=== PATIENT | female | born 1960 | race Caucasian/White ===

== ENCOUNTER 2017-01-09 19:37 | Inpatient (IN) | payer OTHER ==
[~2017-01-09 19:37] MED LIST: ESTR0.5T9 PO; LEVO88TA2 PO; ZOCO40TA PO
[2017-01-09 19:40] VITALS: BP 165/82; PULSE 94; RESP 16; TEMP 99.2; O2SAT 98
[2017-01-09 20:21] VITALS: BP 124/69; PULSE 97; RESP 18; O2SAT 96
[2017-01-09] MEDS ORDERED: HYDR12.56 PO (20:21)
[2017-01-09] MEDS ORDERED: LEVO125T4 PO (20:21)
[2017-01-09] MEDS ORDERED: SODIUM CHLOR 0.9% 1000 ML INJ 1,000 ML IV SCH (20:42)
[2017-01-09] MEDS ORDERED: SODIUM CHLORIDE 0.9% FLUSH 5 ML FLUSH IVF PRN (20:45)
--- NOTE | 2017-01-09 20:46 | PD ---
HPI Chief Complaint: Abdominal Pain Time Seen by Provider: 20:44 Travel History International Travel<30 days: No Contact w/Intl Traveler<30days: No Traveled to known affect area: No History of Present Illness HPI Patient is a 56-year-old female with a history of hypertension, diverticulitis, and grade 3 internal hemorrhoids who underwent colonoscopy [address] Lu presenting with abdominal pain and rectal bleeding. She states that the abdominal pain began this morning and has been getting increasingly worse. It tends to come in waves. It is worse in the left lower quadrant. It is aching and squeezing in nature. 6 out of 10 in severity. No provocative factors, no palliative factors. The pain does radiate to the left lower back and across the suprapubic region and the right lower quadrant. Patient felt physicians had a subjective fever, temperature home was 99.7 Fahrenheit. No antipyretics taken today. She has mild nausea without vomiting. She reports multiple small amounts of soft stool passed since afternoon, today she is also having bright red blood with bowel movements. She states this is more blood than when she was having the internal hemorrhoids. Denies uncontrollable anne of blood. She denies melena, alcohol use and history of PUD. Denies dysuria, hematuria, increased urinary urgency or frequency. Denies vaginal bleeding and discharge. History of hysterectomy and oophrectomy, no other abdominal or pelvic surgeries. She denies any chest pain and shortness of breath. PFSH Past Medical History Blood Disorders: No Heart Rhythm Problems: No Cancer: No Cardiac Catheterization: No Cardiovascular Problems: Yes High Cholesterol: Yes Congestive Heart Failure: No Diabetes: No Endocrine: Yes Gastrointestinal Disorders: Yes (DIVERTICULITIS) Glaucoma: No Genitourinary: No Hepatitis: No Hiatal Hernia: No Hypertension: Yes Immune Disorder: No Musculoskeletal: No Neurologic: No Psychiatric: No Reproductive: No Respiratory: No Thyroid Disease: Yes Influenza Vaccination: No PNEUMOCCOCAL Vaccine (Year): 2 : 0 Para: 0 Past Surgical History Coronary Artery Bypass Graft: No Gynecologic Surgery: Yes (HYSTERECTOMY OOPHERECTOMY) Hysterectomy: Yes (2001) Pacemaker: No Other Surgery: Yes Family History Family Myocardial Infarction: Yes (brother father) Social History Alcohol Use: No Tobacco Use: No Substance Use: No Allergies-Medications (Allergen,Severity, Reaction): Coded Allergies: Tetanus Toxoid (Verified Allergy, Intermediate, 01/09/17) TETANUS VACCINE CAUSED FEVER AND SWELLING AT SITE. Reported Meds & Prescriptions Reported Meds & Active Scripts Active Reported Hydrochlorothiazide 12.5 Mg Tab 12.5 Mg PO DAILY Levothyroxine (Levothyroxine Sodium) 125 Mcg Tab 115 Mcg PO DAILY Review of Systems Except as stated in HPI: all other systems reviewed are Neg Physical Exam Narrative GENERAL: Well-developed and well-nourished adult female in no acute distress. SKIN: Warm and dry. Good turgor without tenting. HEAD: Normocephalic and atraumatic. EYES: PERRL bilaterally, 5mm. EOMI bilaterally. No injection or icterus present. No proptosis. Lids without edema or erythema. ENT: Buccal mucosa pink and moist. Oropharynx free of erythema, tonsillar hypertrophy, masses, swelling, asymmetry and exudates. Uvula midline and airway patent. NECK: Supple, no meningeal signs. Trachea midline, no JVD. No cervical or facial lymphadenopathy. CARDIOVASCULAR: Regular rate and rhythm without murmurs, rubs, clicks or gallops. Radial and posterior tibial pulses 2+ bilaterally. No pedal edema. RESPIRATORY: Clear to auscultation bilaterally with symmetrical rise and fall, no distress or use of accessory muscles. GASTROINTESTINAL: Moderate suprapubic and left lower quadrant tenderness, mild right lower quadrant tenderness. No epigastric or upper quadrant tenderness. No rebound or guarding. No distention or discoloration. Normal bowel sounds all 4 quadrants. No masses or organomegaly present. Negative bilateral CVA tenderness. Rectal exam reveals normal rectal tone without palpable fissures or masses. Soft stool in the rectal vault with small amount of bright red blood streaks without clots or flow, Hemoccult positive. MUSCULOSKELETAL: Patient freely moving all four extremities spontaneously. Extremities without clubbing, cyanosis, or edema. No obvious deformities. NEUROLOGIC: CN II-XII grossly intact. Awake and alert. Motor grossly within normal limits. Normal speech. PSYCHIATRIC: Appropriate mood and affect; insight and judgment normal. Data Data Last Documented VS Vital Signs Date Time Temp Pulse Resp B/P Pulse Ox O2 Delivery O2 Flow Rate FiO2 01/09/17 20:21 97 18 124/69 96 Room Air 01/09/17 19:40 99.2 Orders Complete Blood Count With Diff (01/09/17 20:42) Comprehensive Metabolic Panel (01/09/17 20:42) Lipase (01/09/17 20:42) Lactic Acid (01/09/17 20:42) Prothrombin Time / Inr (Pt) (01/09/17 20:42) Act Partial Throm Time (Ptt) (01/09/17 20:42) Urinalysis - C+S If Indicated (01/09/17 20:42) Iv Access Insert/Monitor (01/09/17 20:42) Ecg Monitoring (01/09/17 20:42) Oximetry (01/09/17 20:42) NPO (01/09/17 20:42) Sodium Chlor 0.9% 1000 Ml Inj (Ns 1000 M (01/09/17 20:42) Sodium Chloride 0.9% Flush (Ns Flush) (01/09/17 20:45) Electrocardiogram (01/09/17 20:42) Chest, Single Ap (01/09/17 20:42) Troponin I (01/09/17 20:42) Ammonia (01/09/17 20:49) Type And Screen (01/09/17 20:49) Ondansetron Inj (Zofran Inj) (01/09/17 21:00) Pantoprazole Inj (Protonix Inj) (01/09/17 21:00) Ct Abd/Pel W Iv Contrast(Rout) (01/09/17 20:49) Piperacil-Tazo 4.5 Gm Premix (Zosyn 4.5 (01/09/17 21:30) Morphine Inj (Morphine Inj) (01/09/17 21:45) Iohexol 350 Inj (Omnipaque 350 Inj) (01/09/17 22:25) Admit Order (Ed Use Only) (01/09/17 23:01) Consult Gastroenterology (01/09/17 ) Labs Laboratory Tests Test 01/09/17 01/09/17 01/09/17 20:16 20:53 21:25 Blood Type B POSITIVE Antibody Screen NEGATIVE White Blood Count 14.8 TH/MM3 Red Blood Count 4.63 MIL/MM3 Hemoglobin 13.8 GM/DL Hematocrit 40.2 % Mean Corpuscular Volume 86.8 FL Mean Corpuscular Hemoglobin 29.8 PG Mean Corpuscular Hemoglobin 34.3 % Concent Red Cell Distribution Width 13.5 % Platelet Count 295 TH/MM3 Mean Platelet Volume 8.7 FL Neutrophils (%) (Auto) 71.8 % Lymphocytes (%) (Auto) 19.8 % Monocytes (%) (Auto) 6.8 % Eosinophils (%) (Auto) 1.0 % Basophils (%) (Auto) 0.6 % Neutrophils # (Auto) 10.6 TH/MM3 Lymphocytes # (Auto) 2.9 TH/MM3 Monocytes # (Auto) 1.0 TH/MM3 Eosinophils # (Auto) 0.1 TH/MM3 Basophils # (Auto) 0.1 TH/MM3 CBC Comment DIFF FINAL Differential Comment Prothrombin Time 10.4 SEC Prothromb Time International 0.9 RATIO Ratio Activated Partial 27.5 SEC Thromboplast Time Sodium Level 139 MEQ/L Potassium Level 3.6 MEQ/L Chloride Level 103 MEQ/L Carbon Dioxide Level 28.2 MEQ/L Anion Gap 8 MEQ/L Blood Urea Nitrogen 11 MG/DL Creatinine 0.81 MG/DL Estimat Glomerular Filtration 73 ML/MIN Rate Random Glucose 101 MG/DL Lactic Acid Level 0.7 mmol/L Calcium Level 8.7 MG/DL Total Bilirubin 0.5 MG/DL Aspartate Amino Transf 16 U/L (AST/SGOT) Alanine Aminotransferase 22 U/L (ALT/SGPT) Alkaline Phosphatase 92 U/L Ammonia 12 MCMOL/L Troponin I LESS THAN 0.02 NG/ML Total Protein 7.1 GM/DL Albumin 3.3 GM/DL Lipase 136 U/L Urine Color YELLOW Urine Turbidity CLEAR Urine pH 7.0 Urine Specific [place] 1.013 Urine Protein NEG mg/dL Urine Glucose (UA) NEG mg/dL Urine Ketones NEG mg/dL Urine Occult Blood NEG Urine Nitrite NEG Urine Bilirubin NEG Urine Urobilinogen LESS THAN 2.0 MG/DL Urine Leukocyte Esterase NEG Urine RBC 3 /hpf Urine WBC 3 /hpf Urine Squamous Epithelial <1 /hpf Cells Urine Bacteria RARE /hpf Urine Mucus FEW /lpf Microscopic Urinalysis Comment CULT NOT INDICATED MDM Medical Decision Making Medical Screen Exam Complete: Yes Emergency Medical Condition: Yes Interpretation(s) Last 24 hours Impressions Chest X-Ray 01/09/172041 Signed Impressions: Service Date/Time: Monday, January 09, 2017 21:03 - CONCLUSION: No acute disease. Wilfredo Nance MD Laboratory Tests Test 01/09/17 01/09/17 01/09/17 20:16 20:53 21:25 Blood Type B POSITIVE Antibody Screen NEGATIVE White Blood Count 14.8 TH/MM3 (4.0-11.0) Red Blood Count 4.63 MIL/MM3 (4.00-5.30) Hemoglobin 13.8 GM/DL (11.6-15.3) Hematocrit 40.2 % (35.0-46.0) Mean Corpuscular Volume 86.8 FL (80.0-100.0) Mean Corpuscular Hemoglobin 29.8 PG (27.0-34.0) Mean Corpuscular Hemoglobin 34.3 % Concent (32.0-36.0) Red Cell Distribution Width 13.5 % (11.6-17.2) Platelet Count 295 TH/MM3 (150-450) Mean Platelet Volume 8.7 FL (7.0-11.0) Neutrophils (%) (Auto) 71.8 % (16.0-70.0) Lymphocytes (%) (Auto) 19.8 % (9.0-44.0) Monocytes (%) (Auto) 6.8 % (0.0-8.0) Eosinophils (%) (Auto) 1.0 % (0.0-4.0) Basophils (%) (Auto) 0.6 % (0.0-2.0) Neutrophils # (Auto) 10.6 TH/MM3 (1.8-7.7) Lymphocytes # (Auto) 2.9 TH/MM3 (1.0-4.8) Monocytes # (Auto) 1.0 TH/MM3 (0-0.9) Eosinophils # (Auto) 0.1 TH/MM3 (0-0.4) Basophils # (Auto) 0.1 TH/MM3 (0-0.2) CBC Comment DIFF FINAL Differential Comment Prothrombin Time 10.4 SEC (9.8-11.6) Prothromb Time International 0.9 RATIO Ratio Activated Partial 27.5 SEC Thromboplast Time (24.3-30.1) Sodium Level 139 MEQ/L (136-145) Potassium Level 3.6 MEQ/L (3.5-5.1) Chloride Level 103 MEQ/L (98-107) Carbon Dioxide Level 28.2 MEQ/L (21.0-32.0) Anion Gap 8 MEQ/L (5-15) Blood Urea Nitrogen 11 MG/DL (7-18) Creatinine 0.81 MG/DL (0.50-1.00) Estimat Glomerular Filtration 73 ML/MIN (>89) Rate Random Glucose 101 MG/DL (74-106) Lactic Acid Level 0.7 mmol/L (0.4-2.0) Calcium Level 8.7 MG/DL (8.5-10.1) Total Bilirubin 0.5 MG/DL (0.2-1.0) Aspartate Amino Transf 16 U/L (15-37) (AST/SGOT) Alanine Aminotransferase 22 U/L (10-53) (ALT/SGPT) Alkaline Phosphatase 92 U/L (45-117) Ammonia 12 MCMOL/L (11-32) Troponin I LESS THAN 0.02 NG/ML (0.02-0.05) Total Protein 7.1 GM/DL (6.4-8.2) Albumin 3.3 GM/DL (3.4-5.0) Lipase 136 U/L (73-393) Urine Color YELLOW (YELLW/STRAW) Urine Turbidity CLEAR (CLEAR) Urine pH 7.0 (5.0-8.5) Urine Specific [place] 1.013 (1.002-1.035) Urine Protein NEG mg/dL (NEG-TRACE) Urine Glucose (UA) NEG mg/dL (NEG) Urine Ketones NEG mg/dL (NEG) Urine Occult Blood NEG (NEG) Urine Nitrite NEG (NEG) Urine Bilirubin NEG (NEG) Urine Urobilinogen LESS THAN 2.0 MG/DL (LESS THAN 2.0) Urine Leukocyte Esterase NEG (NEG) Urine RBC 3 /hpf (0-3) Urine WBC 3 /hpf (0-5) Urine Squamous Epithelial <1 /hpf (0-5) Cells Urine Bacteria RARE /hpf (NONE) Urine Mucus FEW /lpf (OCC) Microscopic Urinalysis Comment CULT NOT INDICATED Differential Diagnosis GI bleed versus diverticulitis versus postsurgical infection versus postsurgical complication versus renal calculi versus pyelonephritis Narrative Course Patient is a 56-year-old female with a history of hypertension, diverticulitis, and grade 3 internal hemorrhoids who underwent colonoscopy [address] Lu presenting with abdominal pain and rectal bleeding that began today. She called her the on-call GI who was concerned about infection and told her to come to the ED. She has a history of diverticulitis. Associated nausea. Temperature is 99.2 Fahrenheit without antipyretics. No tachycardia and she is nontoxic appearing. Stool is Hemoccult positive. Abdomen is rather tender in the suprapubic region and left lower quadrant without rebounding or guarding, some right lower quadrant tenderness as well. Patient was given 1 L normal saline bolus, Zofran and Protonix 80 milligram bolus and ordered labs included type and screen, lipase, ammonia, troponin and EKG. Ordered chest x-ray and CT abdomen with contrast. Patient declines analgesia at this time. EKG normal sinus rhythm, normal axis intervals. No ST-T changes. CBC shows a leukocytosis of 14.8 with a neutrophilia, no bands. Given the patient has felt febrile, has a leukocytosis and states the GI on-call was concerned about postprocedure infection right antibiotics, conferred with Dr. Ac who recommended Zosyn. CT confirms diverticulitis is present with a 5 cm segment of colon, there is no focal abscess seen or free air but there is trace paracolic fluid. Spoke with Dr. Shannon, GI, who agreed to consult on the admission. Dr. Vanessa accepeted the admission. [facility] Point of Care Internal Pos. & Neg. Controls: Passed Fecal Specimen Occult Blood: Positive Diagnosis Primary Impression: Diverticulitis Qualified Code: K57.33 - Diverticulitis of large intestine without perforation or abscess with bleeding Admitting Information Admitting Physician Requests: Admit Condition: Stable Mingo Corona III Jan 09, 2017 20:46
[2017-01-09] MEDS ORDERED: ONDANSETRON HCL 4 MG/2 ML VIAL IVP ONE (21:00)
[2017-01-09] MEDS ORDERED: PANTOPRAZOLE INJ 80 MG in SODIUM CHLORIDE 0.9% INJ 35 ML IV ONE (21:00)
[2017-01-09 21:01] LABS: AUTOMATED NEUTROPHIL # 10.6 TH/MM3 (1.8-7.7); BASOPHIL # 0.1 TH/MM3 (0-0.2); BASOPHIL % 0.6 % (0.0-2.0); EOSINOPHIL # 0.1 TH/MM3 (0-0.4); HEMATOCRIT 40.2 % (35.0-46.0); HEMO FLAGS DIFF FINAL; LYMPH % 19.8 % (9.0-44.0); LYMPHOCYTE # 2.9 TH/MM3 (1.0-4.8); MEAN CELL VOLUME 86.8 FL (80.0-100.0); MEAN CORPUSCULAR HEMOGLOBIN 29.8 PG (27.0-34.0); MEAN CORPUSCULAR HGB CONC 34.3 % (32.0-36.0); MONO % 6.8 % (0.0-8.0); NEUT % 71.8 % (16.0-70.0); PLATELET COUNT 295 TH/MM3 (150-450); RED BLOOD COUNT 4.63 MIL/MM3 (4.00-5.30); RED CELL DISTRIBUTION WIDTH 13.5 % (11.6-17.2); WHITE BLOOD COUNT 14.8 TH/MM3 (4.0-11.0)
[2017-01-09 21:12] LABS: APTT (PATIENT) 27.5 SEC (24.3-30.1); INTERNATIONAL NORMALIZED RATIO 0.9 RATIO; PROTHROMBIN TIME - PATIENT 10.4 SEC (9.8-11.6)
--- NOTE | 2017-01-09 21:25 | RADRPT ---
EXAM DATE/TIME: 01/09/2017 21:03 [facility] COMPARISON: No previous studies available for comparison. INDICATIONS : Free air. Patient states colonoscopy two days ago. Lower abdominal pain and rectal bleeding since the n. MEDICAL HISTORY : Hypertension. SURGICAL HISTORY : None. ENCOUNTER: Initial ACUITY: 2 days PAIN SCORE: 5/10 LOCATION: Bilateral lower chest and abdomen. FINDINGS: A single view of the chest demonstrates the lungs to be symmetrically aerated without evidence of mas s, infiltrate or effusion. The cardiomediastinal contours are unremarkable. Osseous structures are intact. CONCLUSION: No acute disease. Wilfredo Nance MD on January 09, 2017 at 21:23 Board Certified Radiologist. This report was verified electronically.
[2017-01-09] MEDS ORDERED: PIPERACIL-TAZO 4.5 GM PREMIX 100 ML IV ONE (21:30)
[2017-01-09 21:37] LABS: ALT (GPT) 22 U/L (10-53); ANION GAP 8 MEQ/L (5-15); AST (GOT) 16 U/L (15-37); BICARBONATE 28.2 MEQ/L (21.0-32.0); BLOOD UREA NITROGEN 11 MG/DL (7-18); CHLORIDE 103 MEQ/L (98-107); GLOMERULAR FILTRATION RATE 73 ML/MIN (>89); POTASSIUM 3.6 MEQ/L (3.5-5.1); SODIUM (NA) 139 MEQ/L (136-145)
[2017-01-09 21:41] LABS: ALKALINE PHOSPHATASE 92 U/L (45-117); TOTAL BILIRUBIN ADULT 0.5 MG/DL (0.2-1.0)
[2017-01-09] MEDS ORDERED: MORPHINE SULFATE 8 MG/ML INJ IV PUSH ONE (21:45)
[2017-01-09 21:50] LABS: BACTERIA, URINE RARE /hpf; BLOOD, URINE NEG (NEG); COMMENT (UR) CULT NOT INDICATED; CULTURE IF INDICATED CULT NOT INDICATED; GLUCOSE,URINE NEG (NEG); KETONE, URINE NEG (NEG); MUCUS URINE FEW /lpf (OCC); NITRITE,URINE NEG (NEG); SQUAMOUS EPITHELIAL CELL URINE <1 /hpf (0-5); URINE COLOR YELLOW (YELLW/STRAW)
[2017-01-09] MEDS ORDERED: IOHEXOL 350 MG/ML 10 ML VIAL (for RAD DIAG) IV ONE (22:25)
--- NOTE | 2017-01-09 22:48 | RADRPT ---
EXAM DATE/TIME: 01/09/2017 22:24 [facility] COMPARISON: No previous studies available for comparison. INDICATIONS : Low abdominal pain and blood in stool. Colonscopy 2 days prior. IV CONTRAST: 91 cc Omnipaque 350 (iohexol) IV ORAL CONTRAST: No oral contrast ingested. RADIATION DOSE: 18.19 CTDIvol (mGy) MEDICAL HISTORY : Diverticulitis. Cardiovascular disease Hypertension. SURGICAL HISTORY : Hysterectomy. ENCOUNTER: Initial ACUITY: 1 day PAIN SCALE: 6/10 LOCATION: Bilateral lower quadrant TECHNIQUE: Volumetric scanning of the abdomen and pelvis was performed. Using automated exposure control and ad justment of the mA and/or kV according to patient size, radiation dose was kept as low as reasonably achievable to obtain optimal diagnostic quality images. FINDINGS: There is an approximately 5 cm long segment distal left colon with mural thickening. There is a large diverticulum anteriorly and is griffin-colonic fat stranding and edema with trace free fluid most steve cteristic of an acute diverticulitis. No focal abscess, obstruction or free air. Lung bases are clear. No acute findings in the liver, spleen, adrenals, kidneys or pancreas. There ar e multiple calcified gallstones in gallbladder. No acute bony abnormalities. CONCLUSION: Acute diverticulitis of the distal left colon without focal abscess, obstruction, or free air. Trace free fluid in the left paracolic gutter. Multiple gallstones in gallbladder. Wilfredo Nance MD on January 09, 2017 at 22:40 Board Certified Radiologist. This report was verified electronically.
[2017-01-09 23:23] VITALS: BP 136/70; PULSE 92; RESP 16; O2SAT 98
--- NOTE | 2017-01-09 23:43 | HHI.HP ---
HPI Service [facility] Hospitalists Primary Care Physician Clay Macias MD Admission Diagnosis DIVERTICULITIS, RECTAL BLEEDING Chief Complaint: rectal bleeding abdominal pain Travel History International Travel<30 Days: No Contact w/Intl Traveler <30 Da: No Traveled to Known Affected Are: No History of Present Illness Patient is a 56-year-old female with a history of hypertension, diverticulitis, and grade 3 internal hemorrhoids who underwent colonoscopy [address] Lu presenting with abdominal pain and rectal bleeding. She states that the abdominal pain began this morning and has been getting increasingly worse. It tends to come in waves. It is worse in the left lower quadrant. It is aching and squeezing in nature. 6 out of 10 in severity. No provocative factors, no palliative factors. The pain does radiate to the left lower back and across the suprapubic region and the right lower quadrant. Patient had temperature home was 99.7 No antipyretics taken today. She has mild nausea without vomiting. She reports multiple small amounts of soft stool passed since afternoon, today she is also having bright red blood with bowel movements. She states this is more blood than when she was having the internal hemorrhoids. Denies uncontrollable anne of blood. She denies melena, alcohol use and history of PUD. Denies dysuria, hematuria, increased urinary urgency or frequency. Denies vaginal bleeding and discharge. History of hysterectomy and oophrectomy, no other abdominal or pelvic surgeries. She denies any chest pain and shortness of breath. GI was called and they recommend admit with IV antibiotics and pain control. Review of Systems Gastrointestinal: COMPLAINS OF: Abdominal pain, Bloody stools Past Family Social History Past Medical History hypertension,hyperlipidemia,diverticular problems Past Surgical History hysterectomy Reported Medications hctz 12.5 ,levothyroxine Allergies: Coded Allergies: Tetanus Toxoid (Verified Allergy, Intermediate, 01/09/17) TETANUS VACCINE CAUSED FEVER AND SWELLING AT SITE. Family History brother cad Social History NS,ND Physical Exam Vital Signs Vital Signs Date Time Temp Pulse Resp B/P Pulse Ox O2 Delivery O2 Flow Rate FiO2 01/09/17 23:23 92 16 136/70 98 Room Air 01/09/17 20:21 97 18 124/69 96 Room Air 01/09/17 19:40 99.2 94 16 165/82 98 Physical Exam GENERAL: This is a well-nourished, well-developed patient, in no apparent distress. SKIN: No rashes, ecchymoses or lesions. Cool and dry. HEAD: Atraumatic. Normocephalic. No temporal or scalp tenderness. EYES: Pupils equal round and reactive. Extraocular motions intact. No scleral icterus. No injection or drainage. ENT: Nose without bleeding, purulent drainage or septal hematoma. Throat without erythema, tonsillar hypertrophy or exudate. Uvula midline. Airway patent. NECK: Trachea midline. No JVD or lymphadenopathy. Supple, nontender, no meningeal signs. CARDIOVASCULAR: Regular rate and rhythm without murmurs, gallops, or rubs. RESPIRATORY: Clear to auscultation. Breath sounds equal bilaterally. No wheezes , rales, or rhonchi. GASTROINTESTINAL: Abdomen Moderate suprapubic and left lower quadrant tenderness , mild right lower quadrant tenderness guiac positive MUSCULOSKELETAL: Extremities without clubbing, cyanosis, or edema. No joint tenderness, effusion, or edema noted. No calf tenderness. Negative Homans sign bilaterally. NEUROLOGICAL: Awake and alert. Cranial nerves II through XII intact. Motor and sensory grossly within normal limits. Five out of 5 muscle strength in all muscle groups. Normal speech. Laboratory Laboratory Tests Test 01/09/17 01/09/17 01/09/17 20:16 20:53 21:25 Blood Type B POSITIVE Antibody Screen NEGATIVE White Blood Count 14.8 Red Blood Count 4.63 Hemoglobin 13.8 Hematocrit 40.2 Mean Corpuscular Volume 86.8 Mean Corpuscular Hemoglobin 29.8 Mean Corpuscular Hemoglobin 34.3 Concent Red Cell Distribution Width 13.5 Platelet Count 295 Mean Platelet Volume 8.7 Neutrophils (%) (Auto) 71.8 Lymphocytes (%) (Auto) 19.8 Monocytes (%) (Auto) 6.8 Eosinophils (%) (Auto) 1.0 Basophils (%) (Auto) 0.6 Neutrophils # (Auto) 10.6 Lymphocytes # (Auto) 2.9 Monocytes # (Auto) 1.0 Eosinophils # (Auto) 0.1 Basophils # (Auto) 0.1 CBC Comment DIFF FINAL Differential Comment Prothrombin Time 10.4 Prothromb Time International 0.9 Ratio Activated Partial 27.5 Thromboplast Time Sodium Level 139 Potassium Level 3.6 Chloride Level 103 Carbon Dioxide Level 28.2 Anion Gap 8 Blood Urea Nitrogen 11 Creatinine 0.81 Estimat Glomerular Filtration 73 Rate Random Glucose 101 Lactic Acid Level 0.7 Calcium Level 8.7 Total Bilirubin 0.5 Aspartate Amino Transf 16 (AST/SGOT) Alanine Aminotransferase 22 (ALT/SGPT) Alkaline Phosphatase 92 Ammonia 12 Troponin I LESS THAN 0.02 Total Protein 7.1 Albumin 3.3 Lipase 136 Urine Color YELLOW Urine Turbidity CLEAR Urine pH 7.0 Urine Specific [place] 1.013 Urine Protein NEG Urine Glucose (UA) NEG Urine Ketones NEG Urine Occult Blood NEG Urine Nitrite NEG Urine Bilirubin NEG Urine Urobilinogen LESS THAN 2.0 Urine Leukocyte Esterase NEG Urine RBC 3 Urine WBC 3 Urine Squamous Epithelial <1 Cells Urine Bacteria RARE Urine Mucus FEW Microscopic Urinalysis Comment CULT NOT INDICATED Result Diagram: 01/09/17205201/09/172052 Imaging Last 24 hours Impressions Abdomen/Pelvis CT 01/09/172048 Signed Impressions: Service Date/Time: Monday, January 09, 2017 22:24 - CONCLUSION: Acute diverticulitis of the distal left colon without focal abscess, obstruction, or free air. Trace free fluid in the left paracolic gutter. Multiple gallstones in gallbladder. Wilfredo Nance MD Chest X-Ray 01/09/172041 Signed Impressions: Service Date/Time: Monday, January 09, 2017 21:03 - CONCLUSION: No acute disease. Wilfredo Nance MD Course in er started on IV fluids and given morphine and antibiotics Zosyn Assessment and Plan Problem List: (1) Diverticulitis Status: Acute Plan: S/P colonoscopy [address] scan showing acute diverticulitis start antibiotic Zosyn and pain meds GI consult Assessment and Plan further plan as case progresses Code Status full Discussed Condition With patient Physician Certification 2 Midnight Certification Type: Admission for Inpatient Services Order for Inpatient Services The services are ordered in accordance with Medicare regulations or non- Medicare payer requirements, as applicable. In the case of services not specified as inpatient-only, they are appropriately provided as inpatient services in accordance with the 2-midnight benchmark. Estimated LOS (days): 3 3 days is the estimated time the patient will need to remain in the hospital, assuming treatment plan goals are met and no additional complications. Post-Hospital Plan: Not yet determined Problem Qualifiers (1) Diverticulitis: Qualified Code: K57.33 - Diverticulitis of large intestine without perforation or abscess with bleeding Anjel Eason MD Jan 09, 2017 23:43
[2017-01-09] MEDS ORDERED: SODIUM CHLOR 0.45% 1000 ML INJ 1,000 ML IV SCH (23:45)
[2017-01-09] MEDS ORDERED: ONDANSETRON HCL 4 MG/2 ML VIAL IVP PRN (23:45)
[2017-01-09] MEDS ORDERED: SODIUM CHLORIDE 0.9% FLUSH 5 ML FLUSH FLUSH PRN (23:45)
[2017-01-09] MEDS ORDERED: MORPHINE SULFATE 4 MG/ML INJ IV PRN (23:45)
[2017-01-09] MEDS ORDERED: NALOXONE HCL 0.4 MG/ML AMP IV PRN (23:45)
[2017-01-10 01:00] VITALS: BP 127/69; PULSE 86; RESP 17; TEMP 98.3; O2SAT 99
[2017-01-10] MEDS: PANTOPRAZOLE SODIUM 40 MG VIAL IV PUSH SCH ×2 (01:20→21:15)
[2017-01-10 04:00] VITALS: BP 102/64; PULSE 81; RESP 17; TEMP 98.2; O2SAT 100
[2017-01-10] MEDS: PIPERACIL-TAZO 4.5 GM PREMIX 100 ML IV SCH ×3 (05:37→21:15)
[2017-01-10] MEDS: LEVOTHYROXINE SODIUM 125 MCG TAB PO SCH (05:37)
[2017-01-10 07:52] LABS: AUTOMATED NEUTROPHIL # 6.5 TH/MM3 (1.8-7.7); BASOPHIL # 0.1 TH/MM3 (0-0.2); BASOPHIL % 0.6 % (0.0-2.0); EOSINOPHIL # 0.2 TH/MM3 (0-0.4); EOSINOPHIL % 1.9 % (0.0-4.0); HEMATOCRIT 36.9 % (35.0-46.0); HEMO FLAGS DIFF FINAL; LYMPH % 20.1 % (9.0-44.0); LYMPHOCYTE # 1.9 TH/MM3 (1.0-4.8); MEAN CELL VOLUME 87.7 FL (80.0-100.0); MEAN CORPUSCULAR HGB CONC 34.3 % (32.0-36.0); MONO % 8.5 % (0.0-8.0); NEUT % 68.9 % (16.0-70.0); PLATELET COUNT 262 TH/MM3 (150-450); RED BLOOD COUNT 4.21 MIL/MM3 (4.00-5.30); RED CELL DISTRIBUTION WIDTH 13.5 % (11.6-17.2); WHITE BLOOD COUNT 9.4 TH/MM3 (4.0-11.0)
[2017-01-10 08:00] VITALS: BP 98/55; PULSE 80; RESP 14; TEMP 97.8; O2SAT 98
[2017-01-10 08:30] LABS: ALT (GPT) 19 U/L (10-53); ANION GAP 8 MEQ/L (5-15); AST (GOT) 12 U/L (15-37); BICARBONATE 29.4 MEQ/L (21.0-32.0); BLOOD UREA NITROGEN 9 MG/DL (7-18); CHLORIDE 108 MEQ/L (98-107); GLOMERULAR FILTRATION RATE 77 ML/MIN (>89); POTASSIUM 3.4 MEQ/L (3.5-5.1); SODIUM (NA) 145 MEQ/L (136-145)
[2017-01-10 08:32] LABS: ALKALINE PHOSPHATASE 81 U/L (45-117); TOTAL BILIRUBIN ADULT 1.3 MG/DL (0.2-1.0)
[2017-01-10] MEDS: HYDROCHLOROTHIAZIDE 12.5 MG CAP PO SCH (08:58)
[2017-01-10] MEDS: SODIUM CHLORIDE 0.9% FLUSH 5 ML FLUSH FLUSH SCH ×2 (08:58→21:15)
--- NOTE | 2017-01-10 10:27 | PD.CONS ---
HPI History of Present Illness This is a 56 year old female who came to the emergency room for evaluation of rectal bleeding. She reports that she has been having intermittent bright red blood per rectum for several months. She recently underwent a colonoscopy with ablation and thermal distraction of internal hemorrhoids on (01/07/17) and this revealed moderate diverticulosis was noted in the left colon, large internal hemorrhoids distracted with thermal ablation 8 applications, retroflex views revealed internal grade 3 hemorrhoids, a digital rectal exam was performed and revealed medium hemorrhoids. It was recommended that she follow a high-fiber diet and undergo a flexible sigmoidoscopy with banding in 1 month. The patient reports that she woke up Wednesday morning with lower abdominal pain similar to the pain she experienced with her previous episodes of diverticulitis. This is a sharp intermittent pain in the left lower quadrant that radiates across her lower abdomen and also to her lower back. She reports that she had a bowel movement and there was a large amount of bright red blood filling the toilet. She has had bleeding for several months, but states this was a large amount and therefore she was more concerned and came to the emergency room for further evaluation. There are no aggravating or alleviating factors. She reports that she had the one episode of bleeding and has had a scant amount of BRPBR when she wipes her self since that time, but nothing like the episode yesterday. She reports that she is been having intermittent fevers. A few weeks ago she had a low-grade fever and some abdominal pain that she assumed was related to a stomach virus that was going around her office. She reports that her symptoms resolved within a few days and therefore she didn't think much of it. She has a history of diverticulosis and has had 2 prior episodes of diverticulitis in the past the last episode being about 2 years ago. She reports that these were non-complicated and resolved with Flagyl and Cipro. Abdomen/Pelvis CT (01/09/17)- ----> Acute diverticulitis of the distal left colon without focal abscess, obstruction, or free air. Trace free fluid in the left paracolic gutter. Multiple gallstones in gallbladder. (Vanita Diaz) PFSH Past Medical History Degenerative disc disease Diverticulitis 2 Hypothyroidism Obesity History of endometriosis Past Surgical History Colonoscopy Lasix surgery Hysterectomy with nephrectomy Bilateral carpal tunnel surgery (Vanita Diaz) Coded Allergies: Tetanus Toxoid (Verified Allergy, Intermediate, 01/09/17) TETANUS VACCINE CAUSED FEVER AND SWELLING AT SITE. Medications Allergies Coded Allergies Type Severity Reaction Last Updated Verified Tetanus Toxoid Allergy Intermediate 01/09/17 Yes Active Scripts Medications Dose Route/Sig Days Date Category Hydrochlorothiazide 12.5 Mg Tab 12.5 Mg PO DAILY 01/09/17 Reported Levothyroxine (Levothyroxine Sodium) 125 Mcg Tab 115 Mcg PO DAILY 01/09/17 Reported Family History Brother had coronary artery disease Mother from lung cancer at age 81 Social History No history of tobacco, alcohol, illicit drug use (Vanita Diaz) Review of Systems Constitutional: COMPLAINS OF: Fever, DENIES: Fatigue, Weight loss, Chills Cardiovascular: DENIES: Chest pain Gastrointestinal: COMPLAINS OF: Abdominal pain, Bloody stools, DENIES: Black stools, Constipation, Diarrhea, Nausea, Vomiting, Swelling of Abdomen, Heartburn Musculoskeletal: COMPLAINS OF: Back pain Hematologic/lymphatic: DENIES: Bruising Neurologic: DENIES: Abnormal gait Psychiatric: DENIES: Confusion (Vanita Diaz) GI Exam Vitals I&O Vital Signs Date Time Temp Pulse Resp B/P Pulse Ox O2 Delivery O2 Flow Rate FiO2 01/10/17 08:00 97.8 80 14 98/55 98 01/10/17 04:00 98.2 81 17 102/64 100 01/10/17 02:21 18 01/10/17 01:00 98.3 86 17 127/69 99 01/09/17 23:23 92 16 136/70 98 Room Air 01/09/17 20:21 97 18 124/69 96 Room Air 01/09/17 19:40 99.2 94 16 165/82 98 Imaging Last Impressions Abdomen/Pelvis CT 01/09/172048 Signed Impressions: Service Date/Time: Monday, January 09, 2017 22:24 - CONCLUSION: Acute diverticulitis of the distal left colon without focal abscess, obstruction, or free air. Trace free fluid in the left paracolic gutter. Multiple gallstones in gallbladder. Wilfredo Nance MD Chest X-Ray 01/09/172041 Signed Impressions: Service Date/Time: Monday, January 09, 2017 21:03 - CONCLUSION: No acute disease. Wilfredo Nance MD Laboratory Test 01/09/17 01/09/17 01/09/17 01/10/17 20:16 20:53 21:25 07:23 Blood Type B POSITIVE Antibody Screen NEGATIVE White Blood Count 14.8 TH/MM3 9.4 TH/MM3 Red Blood Count 4.63 MIL/MM3 4.21 MIL/MM3 Hemoglobin 13.8 GM/DL 12.7 GM/DL Hematocrit 40.2 % 36.9 % Mean Corpuscular Volume 86.8 FL 87.7 FL Mean Corpuscular Hemoglobin 29.8 PG 30.0 PG Mean Corpuscular Hemoglobin 34.3 % 34.3 % Concent Red Cell Distribution Width 13.5 % 13.5 % Platelet Count 295 TH/MM3 262 TH/MM3 Mean Platelet Volume 8.7 FL 8.8 FL Neutrophils (%) (Auto) 71.8 % 68.9 % Lymphocytes (%) (Auto) 19.8 % 20.1 % Monocytes (%) (Auto) 6.8 % 8.5 % Eosinophils (%) (Auto) 1.0 % 1.9 % Basophils (%) (Auto) 0.6 % 0.6 % Neutrophils # (Auto) 10.6 TH/MM3 6.5 TH/MM3 Lymphocytes # (Auto) 2.9 TH/MM3 1.9 TH/MM3 Monocytes # (Auto) 1.0 TH/MM3 0.8 TH/MM3 Eosinophils # (Auto) 0.1 TH/MM3 0.2 TH/MM3 Basophils # (Auto) 0.1 TH/MM3 0.1 TH/MM3 CBC Comment DIFF FINAL DIFF FINAL Differential Comment Prothrombin Time 10.4 SEC Prothromb Time International 0.9 RATIO Ratio Activated Partial 27.5 SEC Thromboplast Time Sodium Level 139 MEQ/L 145 MEQ/L Potassium Level 3.6 MEQ/L 3.4 MEQ/L Chloride Level 103 MEQ/L 108 MEQ/L Carbon Dioxide Level 28.2 MEQ/L 29.4 MEQ/L Anion Gap 8 MEQ/L 8 MEQ/L Blood Urea Nitrogen 11 MG/DL 9 MG/DL Creatinine 0.81 MG/DL 0.77 MG/DL Estimat Glomerular Filtration 73 ML/MIN 77 ML/MIN Rate Random Glucose 101 MG/DL 88 MG/DL Lactic Acid Level 0.7 mmol/L Calcium Level 8.7 MG/DL 8.2 MG/DL Total Bilirubin 0.5 MG/DL 1.3 MG/DL Aspartate Amino Transf 16 U/L 12 U/L (AST/SGOT) Alanine Aminotransferase 22 U/L 19 U/L (ALT/SGPT) Alkaline Phosphatase 92 U/L 81 U/L Ammonia 12 MCMOL/L Troponin I LESS THAN 0.02 NG/ML Total Protein 7.1 GM/DL 6.1 GM/DL Albumin 3.3 GM/DL 2.8 GM/DL Lipase 136 U/L Urine Color YELLOW Urine Turbidity CLEAR Urine pH 7.0 Urine Specific [place] 1.013 Urine Protein NEG mg/dL Urine Glucose (UA) NEG mg/dL Urine Ketones NEG mg/dL Urine Occult Blood NEG Urine Nitrite NEG Urine Bilirubin NEG Urine Urobilinogen LESS THAN 2.0 MG/DL Urine Leukocyte Esterase NEG Urine RBC 3 /hpf Urine WBC 3 /hpf Urine Squamous Epithelial <1 /hpf Cells Urine Bacteria RARE /hpf Urine Mucus FEW /lpf Microscopic Urinalysis Comment CULT NOT INDICATED Physical Examination HEENT: Normocephalic; atraumatic; no jaundice. T CHEST: CTA CARDIAC: RRR ABDOMEN: Soft, nondistended, moderate tenderness lower abdomen, worse on left side; no hepatosplenomegaly; bowel sounds are present in all four quadrants. EXTREMITIES: No clubbing, cyanosis, or edema. SKIN: Normal; no rash; no jaundice. 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 (Vanita Diaz) Assessment and Plan Plan ASSESSMENT: - Acute diverticulitis, 3rd episode. Last episode about 2 years ago, noncomplicated per patient. Abdomen/Pelvis CT (01/09/17)-----> Acute diverticulitis of the distal left colon without focal abscess, obstruction, or free air. Trace free fluid in the left paracolic gutter. Multiple gallstones in gallbladder. WBC improving with Zosyn. Still with significant tenderness in lower abdomen and LLQ. - Lower GI bleeding, unclear if this is related to her hemorrhoids or diverticulitis. S/P Colonoscopy with ablation and thermal distraction of internal hemorrhoids on (01/07/17) and this revealed moderate diverticulosis was noted in the left colon, large internal hemorrhoids distracted with thermal ablation 8 applications, retroflex views revealed internal grade 3 hemorrhoids, a digital rectal exam was performed and revealed medium hemorrhoids. It was recommended that she follow a high-fiber diet and undergo a flexible sigmoidoscopy with banding in 1 month. The patient reports that she woke up Saturday morning with lower abdominal pain similar to the pain she experienced with her previous episodes of diverticulitis and had one episode of large amount of BRBPR filling toilet with BM. She has since just had a scant amount when she wipes herself. HH stable. - Lower abdominal pain secondary to diverticulitis. - Hemorrhoids, grade III. S/P tx as above. - Leukocytosis. Improved, 14.8----> 9.4. - Mild elevation of LFTs, These were normal on admission. Today with T. Bili 1.3, AST 12, ALT 19, ALk Phosph 81. CT as above. No RUQ tenderness. Will monitor. PLAN: - Clear liquids - Cont. PPI - Cont. Zosyn - Monitor HH - Transfuse as necessary - CBC, CMP in am - Supportive care - Further recommendations to follow based on results of above - Pt seen and examined by Dr. Shannon and myself and this note is written on her behalf (Vanita Diaz) Physician Comments seen, examined agree with above recurrent diverticulitis, rectocele -may need colorectal surgery eval op (Amy Shannon MD) Vanita Diaz Jan 10, 2017 10:27 Amy Shannon MD Jan 10, 2017 12:58
--- NOTE | 2017-01-10 11:29 | HHI.PR ---
Subjective Remarks Pt is tolerating liquid diet. Still with some LLQ pain. small amount of blood on toilet paper with BM, but gush of blood. Objective Vitals Vital Signs Date Time Temp Pulse Resp B/P Pulse Ox O2 Delivery O2 Flow Rate FiO2 01/10/17 08:00 97.8 80 14 98/55 98 01/10/17 04:00 98.2 81 17 102/64 100 01/10/17 02:21 18 01/10/17 01:00 98.3 86 17 127/69 99 01/09/17 23:23 92 16 136/70 98 Room Air 01/09/17 20:21 97 18 124/69 96 Room Air 01/09/17 19:40 99.2 94 16 165/82 98 Result Diagram: 01/10/17 0723 01/10/1723 Imaging Last 24 hours Impressions Abdomen/Pelvis CT 01/09/172048 Signed Impressions: Service Date/Time: Monday, January 09, 2017 22:24 - CONCLUSION: Acute diverticulitis of the distal left colon without focal abscess, obstruction, or free air. Trace free fluid in the left paracolic gutter. Multiple gallstones in gallbladder. Wilfredo Nance MD Chest X-Ray 01/09/172041 Signed Impressions: Service Date/Time: Monday, January 09, 2017 21:03 - CONCLUSION: No acute disease. Wilfredo Nance MD Objective Remarks GENERAL: This is a well-nourished, well-developed patient, in no apparent distress. CARDIOVASCULAR: Regular rate and rhythm without murmurs, gallops, or rubs. RESPIRATORY: Clear to auscultation. Breath sounds equal bilaterally. No wheezes , rales, or rhonchi. GASTROINTESTINAL: Abdomen soft, non-tender, nondistended. Normal active bowel sounds MUSCULOSKELETAL: Extremities without clubbing, cyanosis, or edema. NEURO: Alert & Oriented x4 to person, place, time, situation. Moves all ext x4 A/P Problem List: (1) Diverticulitis Status: Acute Plan: - comgmt with GI - Pt also has hemorrhoids - S/P colonoscopy 2 days prior to admission - CT Abd/pelvis (01/09/17) --> acute diverticulitis - zosyn - noco prn - IVFs - IV protonix - zosyn (2) External hemorrhoid Status: Acute Plan: - ProctoFoam - witch gopi (3) HTN (hypertension) Status: Acute Plan: - HCTZ, with parameters (4) Hypothyroid Status: Acute Plan: - levothyroxine Problem Qualifiers (1) Diverticulitis: Qualified Code: K57.33 - Diverticulitis of large intestine without perforation or abscess with bleeding (2) HTN (hypertension): Qualified Code: I10 - Essential hypertension (3) Hypothyroid: Qualified Code: E03.9 - Hypothyroidism, unspecified type Gold Garza DO Jan 10, 2017 11:29
[2017-01-10] MEDS ORDERED: WITCH HAZEL 50%/GLYCERIN 12.5% 40 PAD JAR TOPICAL PRN (11:45)
[2017-01-10] MEDS ORDERED: PRAMOXINE 1% RECTAL FOAM 15 GM CAN RECTAL PRN (11:45)
[2017-01-10] MEDS: 1/2 NS + KCL 20 MEQ INJ 1,000 ML IV SCH ×2 (11:47→21:14)
[2017-01-10] MEDS: KETOROLAC TROMETHAMINE 60 MG/2 ML (IM) VIAL IM PRN ×2 (11:52→21:53)
[2017-01-10 12:00] VITALS: BP 121/72; PULSE 77; RESP 14; TEMP 97.3; O2SAT 95
[2017-01-10] MEDS ORDERED: MORPHINE SULFATE 4 MG/ML INJ IV PRN (12:45)
--- NOTE | 2017-01-10 14:48 | EKG ---
Date Performed: 01/09/2017 Time Performed: 21:04:28 PTAGE: 56 years EKG: Sinus rhythm LOW QRS VOLTAGE IN PRECORDIAL LEADS Since previous tracing, no significant change noted BORDERLINE E CG PREVIOUS TRACING : 01/21/2012 00.23.22 DOCTOR: Orestes Corona Interpretating Date/Time 01/10/2017 15:41:28
[2017-01-10 16:00] VITALS: BP 103/55; PULSE 75; RESP 16; TEMP 97.7; O2SAT 98
[2017-01-10 20:00] VITALS: BP 110/64; PULSE 72; RESP 18; TEMP 98.2; O2SAT 99
[2017-01-11] VITALS: BP 107/64; PULSE 64; RESP 17; TEMP 97; O2SAT 96
[2017-01-11 04:00] VITALS: BP 123/65; PULSE 66; RESP 18; TEMP 97.4; O2SAT 97
[2017-01-11] MEDS: PIPERACIL-TAZO 4.5 GM PREMIX 100 ML IV SCH ×3 (06:02→21:40)
[2017-01-11] MEDS: LEVOTHYROXINE SODIUM 125 MCG TAB PO SCH (06:02)
[2017-01-11] MEDS: KETOROLAC TROMETHAMINE 60 MG/2 ML (IM) VIAL IM PRN (06:10)
[2017-01-11 08:00] VITALS: BP 120/67; PULSE 69; RESP 18; TEMP 97.2; O2SAT 97
[2017-01-11 08:27] LABS: AUTOMATED NEUTROPHIL # 3.9 TH/MM3 (1.8-7.7); BASOPHIL % 0.7 % (0.0-2.0); EOSINOPHIL # 0.2 TH/MM3 (0-0.4); EOSINOPHIL % 2.9 % (0.0-4.0); HEMATOCRIT 36.8 % (35.0-46.0); HEMO FLAGS DIFF FINAL; LYMPH % 29.5 % (9.0-44.0); LYMPHOCYTE # 1.9 TH/MM3 (1.0-4.8); MEAN CELL VOLUME 88.9 FL (80.0-100.0); MEAN CORPUSCULAR HEMOGLOBIN 29.7 PG (27.0-34.0); MEAN CORPUSCULAR HGB CONC 33.5 % (32.0-36.0); MONO % 7.7 % (0.0-8.0); NEUT % 59.2 % (16.0-70.0); PLATELET COUNT 256 TH/MM3 (150-450); RED BLOOD COUNT 4.14 MIL/MM3 (4.00-5.30); RED CELL DISTRIBUTION WIDTH 13.5 % (11.6-17.2); WHITE BLOOD COUNT 6.6 TH/MM3 (4.0-11.0)
[2017-01-11] MEDS: HYDROCHLOROTHIAZIDE 12.5 MG CAP PO SCH (08:48)
[2017-01-11] MEDS: SODIUM CHLORIDE 0.9% FLUSH 5 ML FLUSH FLUSH SCH ×2 (08:48→21:40)
[2017-01-11 08:53] LABS: ALKALINE PHOSPHATASE 80 U/L (45-117); ALT (GPT) 19 U/L (10-53); ANION GAP 6 MEQ/L (5-15); AST (GOT) 14 U/L (15-37); BICARBONATE 28.7 MEQ/L (21.0-32.0); BLOOD UREA NITROGEN 7 MG/DL (7-18); CHLORIDE 107 MEQ/L (98-107); GLOMERULAR FILTRATION RATE 76 ML/MIN (>89); MAGNESIUM 2.3 MG/DL (1.5-2.5); POTASSIUM 3.7 MEQ/L (3.5-5.1); SODIUM (NA) 142 MEQ/L (136-145); TOTAL BILIRUBIN ADULT 1.2 MG/DL (0.2-1.0)
--- NOTE | 2017-01-11 10:28 | HHI.PR ---
Subjective Remarks still some minor LLQ soreness. clara. clears. no bm yet Objective Vitals heart reg lung cta abd mild llq tenderness. bs ext no edema Vital Signs Date Time Temp Pulse Resp B/P Pulse Ox O2 Delivery O2 Flow Rate FiO2 01/11/17 07:57 16 01/11/17 04:00 97.4 66 18 123/65 97 01/11/17 00:00 97.0 64 17 107/64 96 01/10/17 20:00 98.2 72 18 110/64 99 01/10/17 16:00 97.7 75 16 103/55 98 01/10/17 12:00 97.3 77 14 121/72 95 01/10/17 01/10/17 01/11/17 15:00 23:00 07:00 Intake Total 1589 ml 480 ml Balance 1589 ml 480 ml Intake Oral 960 ml 480 ml IV Total 629 ml # Voids 4 3 # Bowel Movements 0 0 Result Diagram: 01/11/1772401/11/17 0725 Imaging Last 24 hours Impressions Abdomen/Pelvis CT 01/09/172048 Signed Impressions: Service Date/Time: Monday, January 09, 2017 22:24 - CONCLUSION: Acute diverticulitis of the distal left colon without focal abscess, obstruction, or free air. Trace free fluid in the left paracolic gutter. Multiple gallstones in gallbladder. Wilfredo Nance MD Chest X-Ray 01/09/172041 Signed Impressions: Service Date/Time: Monday, January 09, 2017 21:03 - CONCLUSION: No acute disease. Wilfredo Nance MD A/P Problem List: (1) Diverticulitis Status: Acute Plan: - recurrent diverticulitis. pt says 4-5 episodes in 5 yrs. - Pt also has hemorrhoids and rectocoele - S/P colonoscopy 2 days prior to admission - CT Abd/pelvis (01/09/17) --> acute diverticulitis - zosyn was initiated - ivf - advance diet slowly. hopefully dc once pain down and clara food. 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 (2) External hemorrhoid Status: Acute Plan: - ProctoFoam - witch gopi (3) HTN (hypertension) Status: Chronic Plan: - HCTZ (4) Hypothyroid Status: Chronic Plan: - levothyroxine Problem Qualifiers (1) Diverticulitis: Qualified Code: K57.33 - Diverticulitis of large intestine without perforation or abscess with bleeding (2) HTN (hypertension): Qualified Code: I10 - Essential hypertension (3) Hypothyroid: Qualified Code: E03.9 - Hypothyroidism, unspecified type Orestes Matute MD Jan 11, 2017 10:28
[2017-01-11 12:00] VITALS: BP 121/76; PULSE 61; RESP 18; TEMP 96.4; O2SAT 99
[2017-01-11] MEDS: ACETAMINOPHEN/HYDROcodone 325 MG/5 MG TAB PO PRN ×3 (13:24→21:49)
[2017-01-11] MEDS: 1/2 NS + KCL 20 MEQ INJ 1,000 ML IV SCH ×2 (13:28→21:36)
[2017-01-11] MEDS ORDERED: BISACODYL EC 5 MG TABEC PO ONE (13:30)
[2017-01-11] MEDS ORDERED: BISACODYL EC 5 MG TABEC PO PRN (13:30)
[2017-01-11] MEDS ORDERED: DOCUSATE SODIUM 100 MG CAP PO ONE (13:30)
--- NOTE | 2017-01-11 15:47 | HHI.GIFU ---
Subjective Remarks Patient is resting in bed, reports some improvement in the abd pain, hasn't had BM yet, no bleeding so far, tolerating fulls okay Objective Vitals I&O Vital Signs Date Time Temp Pulse Resp B/P Pulse Ox O2 Delivery O2 Flow Rate FiO2 01/11/17 12:00 96.4 61 18 121/76 99 01/11/17 08:00 97.2 69 18 120/67 97 01/11/17 07:57 16 01/11/17 04:00 97.4 66 18 123/65 97 01/11/17 00:00 97.0 64 17 107/64 96 01/10/17 20:00 98.2 72 18 110/64 99 01/10/17 16:00 97.7 75 16 103/55 98 I/O 01/10/17 01/10/17 01/10/17 01/11/17 01/11/17 01/11/17 07:00 15:00 23:00 07:00 15:00 23:00 Intake Total 1589 ml 480 ml Balance 1589 ml 480 ml Intake Oral 960 ml 480 ml IV Total 629 ml # Voids 2 4 3 # Bowel Movements 0 0 Laboratory Laboratory Tests Test 01/11/17 07:25 White Blood Count 6.6 Red Blood Count 4.14 Hemoglobin 12.3 Hematocrit 36.8 Mean Corpuscular Volume 88.9 Mean Corpuscular Hemoglobin 29.7 Mean Corpuscular Hemoglobin 33.5 Concent Red Cell Distribution Width 13.5 Platelet Count 256 Mean Platelet Volume 9.1 Neutrophils (%) (Auto) 59.2 Lymphocytes (%) (Auto) 29.5 Monocytes (%) (Auto) 7.7 Eosinophils (%) (Auto) 2.9 Basophils (%) (Auto) 0.7 Neutrophils # (Auto) 3.9 Lymphocytes # (Auto) 1.9 Monocytes # (Auto) 0.5 Eosinophils # (Auto) 0.2 Basophils # (Auto) 0.0 CBC Comment DIFF FINAL Differential Comment Sodium Level 142 Potassium Level 3.7 Chloride Level 107 Carbon Dioxide Level 28.7 Anion Gap 6 Blood Urea Nitrogen 7 Creatinine 0.78 Estimat Glomerular Filtration 76 Rate Random Glucose 87 Calcium Level 8.4 Magnesium Level 2.3 Total Bilirubin 1.2 Aspartate Amino Transf 14 (AST/SGOT) Alanine Aminotransferase 19 (ALT/SGPT) Alkaline Phosphatase 80 Total Protein 6.3 Albumin 2.8 Imaging Last Impressions Abdomen/Pelvis CT 01/09/172048 Signed Impressions: Service Date/Time: Monday, January 09, 2017 22:24 - CONCLUSION: Acute diverticulitis of the distal left colon without focal abscess, obstruction, or free air. Trace free fluid in the left paracolic gutter. Multiple gallstones in gallbladder. Wilfredo Nance MD Chest X-Ray 01/09/172041 Signed Impressions: Service Date/Time: Monday, January 09, 2017 21:03 - CONCLUSION: No acute disease. Wilfredo Nance MD Physical Exam HEENT: normocephalic; atraumatic; no jaundice. Throat is clear. NECK: Neck is supple, no JVD, no lymphadenopathy. CHEST: Chest is clear to auscultation and percussion. CARDIAC: Regular rate and rhythm with no murmur gallop or rubs. ABDOMEN: Soft, nondistended, sever LLQ tenderness upon palpation ; no hepatosplenomegaly; bowel sounds are present in all four quadrants. EXTREMITIES: No clubbing, cyanosis, or edema. SKIN: Normal; no rash; no jaundice. 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 Assessment and Plan Plan ASSESSMENT: - Acute diverticulitis, 3rd episode. Last episode about 2 years ago, noncomplicated per patient. Abdomen/Pelvis CT (01/09/17)-----> Acute diverticulitis of the distal left colon without focal abscess, obstruction, or free air. Trace free fluid in the left paracolic gutter. Multiple gallstones in gallbladder. Zosyn - Lower GI bleeding, No more bleeding since arrival, hgb stable, unclear if this is related to her hemorrhoids or diverticulitis. S/P Colonoscopy with ablation and thermal distraction of internal hemorrhoids on (01/07/17) and this revealed moderate diverticulosis was noted in the left colon, large internal hemorrhoids distracted with thermal ablation 8 applications, retroflex views revealed internal grade 3 hemorrhoids, a digital rectal exam was performed and revealed medium hemorrhoids. It was recommended that she follow a high-fiber diet and undergo a flexible sigmoidoscopy with banding in 1 month. The patient reports that she woke up Wednesday morning with lower abdominal pain similar to the pain she experienced with her previous episodes of diverticulitis and had one episode of large amount of BRBPR filling toilet with BM. She has since just had a scant amount when she wipes herself. - Lower abdominal pain secondary to diverticulitis. Improving, tolerating fulls okay - Hemorrhoids, grade III. S/P tx as above. - Possible rectocele, she feels like there is a pouch where the stool is trapped - Leukocytosis. Resolved, 14.8----> 6.6 - Mild elevation of bilirubin today is 1.2, was 0.[address] as above. No RUQ tenderness. Will monitor. PLAN: - Full liquid diet - Cont. PPI - Cont. Zosyn - Monitor HH - Transfuse as necessary - CBC, CMP in am - Consider CRS as an OP for recurrent diverticulitis and possible rectocele - Supportive care - Further recommendations to follow based on results of above - Pt seen and examined by Dr. Lu and myself and this note is written on his behalf Bryon Valadez Jan 11, 2017 15:47
[2017-01-11 16:00] VITALS: BP 121/73; PULSE 60; RESP 18; TEMP 97.2; O2SAT 97
[2017-01-11 20:00] VITALS: BP 113/61; PULSE 78; RESP 16; TEMP 97.7; O2SAT 97
[2017-01-11] MEDS: DOCUSATE SODIUM 100 MG CAP PO SCH (21:00)
[2017-01-12 00:15] VITALS: BP 93/55; PULSE 59; RESP 16; TEMP 97.3; O2SAT 95
[2017-01-12] MEDS: PANTOPRAZOLE SODIUM 40 MG VIAL IV PUSH SCH (00:55)
[2017-01-12] MEDS: ACETAMINOPHEN/HYDROcodone 325 MG/5 MG TAB PO PRN (01:55)
[2017-01-12 04:00] VITALS: BP 105/59; PULSE 64; RESP 16; TEMP 96.8; O2SAT 95
[2017-01-12] MEDS: PIPERACIL-TAZO 4.5 GM PREMIX 100 ML IV SCH (05:25)
[2017-01-12] MEDS: LEVOTHYROXINE SODIUM 125 MCG TAB PO SCH (05:25)
[2017-01-12 07:36] LABS: AUTOMATED NEUTROPHIL # 3.1 TH/MM3 (1.8-7.7); BASOPHIL % 0.8 % (0.0-2.0); EOSINOPHIL # 0.2 TH/MM3 (0-0.4); EOSINOPHIL % 3.9 % (0.0-4.0); HEMO FLAGS DIFF FINAL; LYMPH % 34.5 % (9.0-44.0); MEAN CELL VOLUME 89.2 FL (80.0-100.0); MEAN CORPUSCULAR HEMOGLOBIN 29.6 PG (27.0-34.0); MEAN CORPUSCULAR HGB CONC 33.2 % (32.0-36.0); MONO % 8.5 % (0.0-8.0); NEUT % 52.3 % (16.0-70.0); PLATELET COUNT 231 TH/MM3 (150-450); RED BLOOD COUNT 3.93 MIL/MM3 (4.00-5.30); RED CELL DISTRIBUTION WIDTH 13.5 % (11.6-17.2); WHITE BLOOD COUNT 5.9 TH/MM3 (4.0-11.0)
[2017-01-12] MEDS: DOCUSATE SODIUM 100 MG CAP PO SCH (07:44)
[2017-01-12] MEDS: SODIUM CHLORIDE 0.9% FLUSH 5 ML FLUSH FLUSH SCH (07:44)
[2017-01-12 08:00] VITALS: BP 117/61; PULSE 58; RESP 18; TEMP 98.2; O2SAT 100
[2017-01-12 08:06] LABS: ALKALINE PHOSPHATASE 68 U/L (45-117); ALT (GPT) 18 U/L (10-53); ANION GAP 8 MEQ/L (5-15); AST (GOT) 13 U/L (15-37); BICARBONATE 25.7 MEQ/L (21.0-32.0); BLOOD UREA NITROGEN 6 MG/DL (7-18); CHLORIDE 108 MEQ/L (98-107); GLOMERULAR FILTRATION RATE 77 ML/MIN (>89); POTASSIUM 3.8 MEQ/L (3.5-5.1); SODIUM (NA) 142 MEQ/L (136-145); TOTAL BILIRUBIN ADULT 0.7 MG/DL (0.2-1.0)
--- NOTE | 2017-01-12 09:11 | HHI.PR ---
Subjective Remarks bowels moved. drops of blood from hemorrhoids. abdomen pain much better clara liquids. Objective Vitals heart reg lung cta abd bs/nd/no rebound ext no edema Vital Signs Date Time Temp Pulse Resp B/P Pulse Ox O2 Delivery O2 Flow Rate FiO2 01/12/17 04:00 96.8 64 16 105/59 95 01/12/17 00:15 97.3 59 16 93/55 95 01/11/17 20:00 97.7 78 16 113/61 97 01/11/17 16:00 97.2 60 18 121/73 97 01/11/17 12:00 96.4 61 18 121/76 99 01/11/17 01/11/17 01/12/17 15:00 23:00 07:00 Intake Total 1150 ml 625 ml Balance 1150 ml 625 ml IV Total 1150 ml 625 ml # Voids 2 1 # Bowel Movements 2 Result Diagram: 01/12/17 0530 01/12/17 0530 Imaging Last 24 hours Impressions Abdomen/Pelvis CT 01/09/172048 Signed Impressions: Service Date/Time: Monday, January 09, 2017 22:24 - CONCLUSION: Acute diverticulitis of the distal left colon without focal abscess, obstruction, or free air. Trace free fluid in the left paracolic gutter. Multiple gallstones in gallbladder. Wilfrdeo Nance MD Chest X-Ray 01/09/172041 Signed Impressions: Service Date/Time: Monday, January 09, 2017 21:03 - CONCLUSION: No acute disease. Wilfredo Nance MD A/P Problem List: (1) Diverticulitis Status: Acute Plan: - recurrent diverticulitis. pt says 4-5 episodes in 5 yrs. - Pt also has hemorrhoids and rectocoele - S/P colonoscopy 2 days prior to admission - CT Abd/pelvis (01/09/17) --> acute diverticulitis - zosyn was initiated - d/c ivf. advance diet and d/c home if tolerated. iv to po abx and f/u GI w/in 1 week. (2) External hemorrhoid Status: Acute Plan: - ProctoFoam - witch gopi (3) HTN (hypertension) Status: Chronic Plan: - HCTZ (4) Hypothyroid Status: Chronic Plan: - levothyroxine Problem Qualifiers (1) Diverticulitis: Qualified Code: K57.33 - Diverticulitis of large intestine without perforation or abscess with bleeding (2) HTN (hypertension): Qualified Code: I10 - Essential hypertension (3) Hypothyroid: Qualified Code: E03.9 - Hypothyroidism, unspecified type Orestes Matute MD Jan 12, 2017 09:11
[2017-01-12] MEDS ORDERED: FLEE5TAB PO (09:12)
[2017-01-12] MEDS ORDERED: AUGM500T7 PO (09:12)
[2017-01-12] MEDS ORDERED: DOCU1CAP39 PO (09:12)
[2017-01-12 12:00] VITALS: BP 111/59; PULSE 57; RESP 18; TEMP 98; O2SAT 99
--- NOTE | 2017-01-12 14:54 | HHI.DCPOC ---
Discharge Care Plan Diagnosis: (1) Diverticulitis (2) External hemorrhoid Goals to Promote Your Health * To prevent worsening of your condition and complications * To maintain your health at the optimal level Directions to Meet Your Goals Take your medications as prescribed Follow your dietary instruction Follow activity as directed Keep your appointments as scheduled Take your immunizations and boosters as scheduled If your symptoms worsen call your PCP, if no PCP go to Urgent Care Center or Emergency Room Smoking is Dangerous to Your Health. Avoid second hand smoke Call the 24-hour hour crisis hotline for domestic abuse at Orestes Matute MD Jan 12, 2017 14:54
--- NOTE | 2017-01-12 15:08 | HHI.GIFU ---
Subjective Remarks Patient is resting in bed, reports much improvement in the abdomen pain, tolerating regular diet okay, had a BM today, with some blood not much Objective Vitals I&O Vital Signs Date Time Temp Pulse Resp B/P Pulse Ox O2 Delivery O2 Flow Rate FiO2 01/12/17 12:00 98.0 57 18 111/59 99 01/12/17 08:00 98.2 58 18 117/61 100 01/12/17 04:00 96.8 64 16 105/59 95 01/12/17 00:15 97.3 59 16 93/55 95 01/11/17 20:00 97.7 78 16 113/61 97 01/11/17 16:00 97.2 60 18 121/73 97 I/O 01/11/17 01/11/17 01/11/17 01/12/17 01/12/17 01/12/17 07:00 15:00 23:00 07:00 15:00 23:00 Intake Total 1150 ml 625 ml Balance 1150 ml 625 ml IV Total 1150 ml 625 ml # Voids 2 1 # Bowel Movements 2 Laboratory Laboratory Tests Test 01/12/17 05:30 White Blood Count 5.9 Red Blood Count 3.93 Hemoglobin 11.6 Hematocrit 35.0 Mean Corpuscular Volume 89.2 Mean Corpuscular Hemoglobin 29.6 Mean Corpuscular Hemoglobin 33.2 Concent Red Cell Distribution Width 13.5 Platelet Count 231 Mean Platelet Volume 9.3 Neutrophils (%) (Auto) 52.3 Lymphocytes (%) (Auto) 34.5 Monocytes (%) (Auto) 8.5 Eosinophils (%) (Auto) 3.9 Basophils (%) (Auto) 0.8 Neutrophils # (Auto) 3.1 Lymphocytes # (Auto) 2.0 Monocytes # (Auto) 0.5 Eosinophils # (Auto) 0.2 Basophils # (Auto) 0.0 CBC Comment DIFF FINAL Differential Comment Sodium Level 142 Potassium Level 3.8 Chloride Level 108 Carbon Dioxide Level 25.7 Anion Gap 8 Blood Urea Nitrogen 6 Creatinine 0.77 Estimat Glomerular Filtration 77 Rate Random Glucose 77 Calcium Level 8.1 Total Bilirubin 0.7 Aspartate Amino Transf 13 (AST/SGOT) Alanine Aminotransferase 18 (ALT/SGPT) Alkaline Phosphatase 68 Total Protein 5.8 Albumin 2.5 Imaging Last Impressions Abdomen/Pelvis CT 01/09/172048 Signed Impressions: Service Date/Time: Monday, January 09, 2017 22:24 - CONCLUSION: Acute diverticulitis of the distal left colon without focal abscess, obstruction, or free air. Trace free fluid in the left paracolic gutter. Multiple gallstones in gallbladder. Wilfredo Nance MD Chest X-Ray 01/09/172041 Signed Impressions: Service Date/Time: Monday, January 09, 2017 21:03 - CONCLUSION: No acute disease. Wilfredo Nance MD Physical Exam HEENT: normocephalic; atraumatic; no jaundice. Throat is clear. NECK: Neck is supple, no JVD, no lymphadenopathy. CHEST: Chest is clear to auscultation and percussion. CARDIAC: Regular rate and rhythm with no murmur gallop or rubs. ABDOMEN: Soft, nondistended, some lower abdomen tenderness, much improved ; no hepatosplenomegaly; bowel sounds are present in all four quadrants. EXTREMITIES: No clubbing, cyanosis, or edema. SKIN: Normal; no rash; no jaundice. 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 Assessment and Plan Plan ASSESSMENT: - Acute diverticulitis, 3rd episode. Last episode about 2 years ago, noncomplicated per patient. Abdomen/Pelvis CT (01/09/17)-----> Acute diverticulitis of the distal left colon without focal abscess, obstruction, or free air. Trace free fluid in the left paracolic gutter. Multiple gallstones in gallbladder. Zosyn - Lower GI bleeding, Had a BM today with some blood, hgb slight drop, S/P Colonoscopy with ablation and thermal distraction of internal hemorrhoids on (01/07/17) and this revealed moderate diverticulosis was noted in the left colon, large internal hemorrhoids distracted with thermal ablation 8 applications, retroflex views revealed internal grade 3 hemorrhoids, a digital rectal exam was performed and revealed medium hemorrhoids. It was recommended that she follow a high-fiber diet and undergo a flexible sigmoidoscopy with banding in 1 month. The patient reports that she woke up Wednesday morning with lower abdominal pain similar to the pain she experienced with her previous episodes of diverticulitis and had one episode of large amount of BRBPR filling toilet with BM prior to admission. She has since just had a scant amount when she wipes herself. - Lower abdominal pain secondary to diverticulitis. Improving, tolerating regular diet okay - Hemorrhoids, grade III. S/P tx as above. - Possible rectocele, she feels like there is a pouch where the stool is trapped - Leukocytosis. Resolved, 14.8----> 6.6 - Mild elevation of bilirubin - Normalized. CT as above. PLAN: - CHATA - Cont. PPI - Okay to switch to PO abx and dc home - F/u with Gi in 2 weeks - Consider CRS as an OP for recurrent diverticulitis and possible rectocele - Pt seen and examined by Dr. Lu and myself and this note is written on his behalf Bryon Valadez Jan 12, 2017 15:08
--- NOTE | 2017-02-18 20:25 | HHI.DS ---
Discharge Summary Admission Date Jan 09, 2017 at 23:04 Discharge Date: Jan 12, 2017 Admitting Diagnosis DIVERTICULITIS, RECTAL BLEEDING (1) Diverticulitis Diagnosis: Principal (2) External hemorrhoid Diagnosis: Principal (3) HTN (hypertension) Diagnosis: Secondary (4) Hypothyroid Diagnosis: Secondary Brief History Patient is a 56-year-old female with a history of hypertension, diverticulitis, and grade 3 internal hemorrhoids who underwent colonoscopy [address] Lu presenting with abdominal pain and rectal bleeding. She states that the abdominal pain began this morning and has been getting increasingly worse. It tends to come in waves. It is worse in the left lower quadrant. It is aching and squeezing in nature. 6 out of 10 in severity. No provocative factors, no palliative factors. The pain does radiate to the left lower back and across the suprapubic region and the right lower quadrant. Patient had temperature home was 99.7 No antipyretics taken today. She has mild nausea without vomiting. She reports multiple small amounts of soft stool passed since afternoon, today she is also having bright red blood with bowel movements. She states this is more blood than when she was having the internal hemorrhoids. Denies uncontrollable anne of blood. She denies melena, alcohol use and history of PUD. Denies dysuria, hematuria, increased urinary urgency or frequency. Denies vaginal bleeding and discharge. History of hysterectomy and oophrectomy, no other abdominal or pelvic surgeries. She denies any chest pain and shortness of breath. GI was called and they recommend admit with IV antibiotics and pain control. Hospital Course - recurrent diverticulitis. pt says 4-5 episodes in 5 yrs. - Pt also has hemorrhoids and rectocoele - S/P colonoscopy 2 days prior to admission - CT Abd/pelvis (01/09/17) --> acute diverticulitis - zosyn was initiated - d/c ivf. advance diet and d/c home today iv to po abx and f/u GI w/in 1 week. Pt Condition on Discharge: Stable Discharge Disposition: Discharge Home Discharge Instructions DIET: Follow Instructions for: Soft Diet Activities you can perform: Regular-No Restrictions Follow up Referrals: Gastroenterology - 1 Week @ [facility] PCP Follow-up - [address] gilbert New Medications: Amoxicillin-Clavulanate (Augmentin) 500-125 mg Tab 500 MG PO Q8H Infection Days 10 Ref [address] (Bisacodyl EC) 5 Mg Tabec 10 MG PO DAILY PRN constipation #30 TAB Docusate Sodium (Dok) 100 Mg Cap 100 MG PO BID Constipation Days 30 CAP Continued Medications: Levothyroxine (Levothyroxine) 125 Mcg Tab 115 MCG PO DAILY Thyroid #30 Ref 0 TAB Discontinued Medications: Hydrochlorothiazide (Hydrochlorothiazide) 12.5 Mg Tab 12.5 MG PO DAILY #30 Ref 0 TAB Orestes Matute MD Feb 18, 2017 20:25
== END 2017-01-12 15:39 | disposition home or self-care (01) | DRG 378 ==
LOC: NEPE 19:37 → NEDA 23:04 → HOCA 01-10 00:39
PROVIDERS: ADMIT Hospitalist; ATTEND Hospitalist
DX: K92.2 Gastrointestinal hemorrhage, unspecified (principal); K57.32 Diverticulitis of large intestine without perforation or abscess without bleeding; I10 Essential (primary) hypertension; N81.6 Rectocele; K64.8 Other hemorrhoids; E78.00 Pure hypercholesterolemia, unspecified; Z88.7 Allergy status to serum and vaccine; K80.20 Calculus of gallbladder without cholecystitis without obstruction; E03.9 Hypothyroidism, unspecified; Z82.49 Family history of ischemic heart disease and other diseases of the circulatory system; Z80.1 Family history of malignant neoplasm of trachea, bronchus and lung
CPT/HCPCS: 71010; 74177; 80053; 81001; 82140; 83605; 83690; 83735; 84484; 85025; 85610; 85730; 86850; 86900; 86901; 93005; 96365; 96368; 96375; C9113; J1885; J2270; J2405; J2543; J7030; Q9967

== ENCOUNTER 2018-01-10 11:46 | Emergency (ER) | payer OTHER ==
[~2018-01-10 11:46] MED LIST changes: +AUGM500T7 PO; +DOCU1CAP39 PO; -ESTR0.5T9 PO; +FLEE5TAB PO; +LEVO125T4 PO; -LEVO88TA2 PO; -ZOCO40TA PO
[2018-01-10 11:48] VITALS: PULSE 128; RESP 28; O2SAT 97
[2018-01-10] MEDS ORDERED: SODIUM CHLOR 0.9% 1000 ML INJ 1,000 ML IV SCH (11:59)
[2018-01-10] MEDS ORDERED: ONDANSETRON HCL 4 MG/2 ML VIAL IVP ONE (12:00)
[2018-01-10] MEDS ORDERED: HYDROmorphone HCL PF 1 MG/ML VIAL IVS ONE (12:00)
[2018-01-10] MEDS ORDERED: HYDROmorphone HCL PF 2 MG/ML VIAL ONE (12:07)
--- NOTE | 2018-01-10 12:14 | PD ---
HPI Chief Complaint: Abdominal Pain Time Seen by Provider: 11:59 Travel History International Travel<30 days: No Contact w/Intl Traveler<30days: No Traveled to known affect area: No History of Present Illness HPI 57-year-old female presents emergency department with left flank pain that started approximately 1 hour ago while she was working. States the pain is sharp and severe and radiates to the front into her groin. Says she became diaphoretic and lightheaded at the onset. Has nausea. No palliative or provocative factors. Pain is constant but does fluctuate. Patient denies fever, chills. Denies numbness or tingling of extremities. Denies chest pain. Patient believes that this is a diverticulitis problem. She had a BM this morning which was normal for her. She has a history of diverticulitis and recently saw her GI doctor for medications, Dr. Correa. Denies hematuria. Patient states she has a history of hypertension. Denies history of kidney stones. PFSH Past Medical History Blood Disorders: No Heart Rhythm Problems: No Cancer: No Cardiac Catheterization: No Cardiovascular Problems: Yes (HTN) High Cholesterol: Yes Chemotherapy: No Congestive Heart Failure: No Diabetes: No Diverticulitis: Yes Endocrine: Yes Gastrointestinal Disorders: Yes (DIVERTICULITIS) Glaucoma: No Genitourinary: No Hepatitis: No Hiatal Hernia: No Hypertension: Yes Immune Disorder: No Musculoskeletal: Yes Neurologic: No Psychiatric: No Reproductive: No Respiratory: No Radiation Therapy: No Thyroid Disease: Yes Tetanus Vaccination: Unknown PNEUMOCCOCAL Vaccine (Year): 2 : 0 Para: 0 Past Surgical History Coronary Artery Bypass Graft: No Gynecologic Surgery: Yes (HYSTERECTOMY, OOPHERECTOMY) Hysterectomy: Yes (2001) Pacemaker: No Other Surgery: Yes Family History Family Myocardial Infarction: Yes (brother father) Social History Alcohol Use: No Tobacco Use: No Substance Use: No Allergies-Medications (Allergen,Severity, Reaction): Coded Allergies: tetanus toxoid, adsorbed (Unverified Allergy, Intermediate, 07/06/17) TETANUS VACCINE CAUSED FEVER AND SWELLING AT SITE. Reported Meds & Prescriptions Reported Meds & Active Scripts Active Zofran (Ondansetron HCl) 4 Mg Tab 4 Mg PO Q8HR PRN 5 Days Macrobid (Nitrofurantoin Monoh/Nitrofur Macro) 100 Mg Cap 100 Mg PO BID 5 Days Flomax (Tamsulosin HCl) 0.4 Mg Cap 0.4 Mg PO HS 10 Days Ketorolac (Ketorolac Tromethamine) 10 Mg Tab 10 Mg PO TID 3 Days Hydrocodone-Acetaminophen 5-325 mg Tab 1 Tab PO Q4H PRN 5 Days Reported Vitamin B-12 (Cyanocobalamin) 1,000 Mcg Tab Unknown Dose PO DAILY 5-Htp (5-Hydroxytryptophan (5-Htp)) 50 Mg Capsule 1 Tab PO DAILY Hydrochlorothiazide 12.5 Mg Cap 12.5 Mg PO DAILY Synthroid (Levothyroxine Sodium) 112 Mcg Tab 112 Mcg PO DAILY Review of Systems Except as stated in HPI: all other systems reviewed are Neg Physical Exam Narrative GENERAL: Well-developed, well-nourished in moderate distress SKIN: Focused skin assessment warm/dry. HEAD: Atraumatic. Normocephalic. EYES: Pupils equal and round. No scleral icterus. No injection or drainage. ENT: No nasal bleeding or discharge. Mucous membranes pink and moist. NECK: Trachea midline. No JVD. CARDIOVASCULAR: Regular rate and rhythm. No murmur appreciated. RESPIRATORY: No accessory muscle use. Clear to auscultation. Breath sounds equal bilaterally. GASTROINTESTINAL: Abdomen soft, left abdomen mildly tender without rebound, no guarding present, non distended, no CVAT MUSCULOSKELETAL: No obvious deformities. No clubbing. No cyanosis. No edema. Marii's sign negative NEUROLOGICAL: Awake and alert. No obvious cranial nerve deficits. Motor grossly within normal limits. Normal speech. PSYCHIATRIC: Appropriate mood and affect; insight and judgment normal. Data Data Last Documented VS Vital Signs Date Time Temp Pulse Resp B/P (MAP) Pulse Ox O2 Delivery O2 Flow Rate FiO2 01/10/18 14:20 68 16 141/71 (94) 99 01/10/18 13:29 Room Air Orders Orders Complete Blood Count With Diff (01/10/18 11:59) Comprehensive Metabolic Panel (01/10/18 11:59) Lipase (01/10/18 11:59) Prothrombin Time / Inr (Pt) (01/10/18 11:59) Act Partial Throm Time (Ptt) (01/10/18 11:59) Urinalysis - C+S If Indicated (01/10/18 11:59) Ct Abd/Pel W Iv Contrast(Rout) (01/10/18 11:59) Ondansetron Inj (Zofran Inj) (01/10/18 12:00) Sodium Chlor 0.9% 1000 Ml Inj (Ns 1000 M (01/10/18 11:59) Electrocardiogram (01/10/18 11:59) Hydromorphone Pf Inj (Dilaudid Pf Inj) (01/10/18 12:00) Prochlorperazine Inj (Compazine Inj) (01/10/18 12:15) Ketorolac Inj (Toradol Inj) (01/10/18 12:15) Hydromorphone Pf Inj (Dilaudid Pf Inj) (01/10/18 12:07) Iohexol 350 Inj (Omnipaque 350 Inj) (01/10/18 13:03) Hydromorphone Pf Inj (Dilaudid Pf Inj) (01/10/18 13:15) Sodium Chlor 0.9% 1000 Ml Inj (Ns 1000 M (01/10/18 13:15) Ed Discharge Order (01/10/18 14:03) Labs Laboratory Tests Test 01/10/18 12:05 White Blood Count 9.4 TH/MM3 Red Blood Count 4.85 MIL/MM3 Hemoglobin 14.8 GM/DL Hematocrit 43.0 % Mean Corpuscular Volume 88.7 FL Mean Corpuscular Hemoglobin 30.5 PG Mean Corpuscular Hemoglobin Concent 34.4 % Red Cell Distribution Width 13.8 % Platelet Count 304 TH/MM3 Mean Platelet Volume 8.9 FL Neutrophils (%) (Auto) 46.4 % Lymphocytes (%) (Auto) 42.4 % Monocytes (%) (Auto) 8.3 % Eosinophils (%) (Auto) 2.2 % Basophils (%) (Auto) 0.7 % Neutrophils # (Auto) 4.4 TH/MM3 Lymphocytes # (Auto) 4.0 TH/MM3 Monocytes # (Auto) 0.8 TH/MM3 Eosinophils # (Auto) 0.2 TH/MM3 Basophils # (Auto) 0.1 TH/MM3 CBC Comment DIFF FINAL Differential Comment Prothrombin Time 10.0 SEC Prothromb Time International Ratio 1.0 RATIO Activated Partial Thromboplast Time 25.9 SEC Urine Color YELLOW Urine Turbidity CLEAR Urine pH 6.0 Urine Specific [place] GREATER THAN 1.050 Urine Protein TRACE mg/dL Urine Glucose (UA) NEG mg/dL Urine Ketones 40 mg/dL Urine Occult Blood LARGE Urine Nitrite NEG Urine Bilirubin NEG Urine Urobilinogen LESS THAN 2.0 MG/DL Urine Leukocyte Esterase NEG Urine RBC /hpf Urine WBC 8 /hpf Urine Squamous Epithelial Cells <1 /hpf Urine Bacteria RARE /hpf Urine Hyaline Casts 1 /lpf Urine Mucus FEW /lpf Microscopic Urinalysis Comment CULT NOT INDICATED Blood Urea Nitrogen 17 MG/DL Creatinine 0.91 MG/DL Random Glucose 116 MG/DL Total Protein 7.5 GM/DL Albumin 3.7 GM/DL Calcium Level 9.2 MG/DL Alkaline Phosphatase 119 U/L Aspartate Amino Transf (AST/SGOT) 20 U/L Alanine Aminotransferase (ALT/SGPT) 26 U/L Total Bilirubin 0.9 MG/DL Sodium Level 140 MEQ/L Potassium Level 3.4 MEQ/L Chloride Level 104 MEQ/L Carbon Dioxide Level 25.9 MEQ/L Anion Gap 10 MEQ/L Estimat Glomerular Filtration Rate 63 ML/MIN Lipase 174 U/L MDM Medical Decision Making Medical Screen Exam Complete: Yes Emergency Medical Condition: Yes Differential Diagnosis Nephrolithiasis, pyelonephritis, urinary tract infection Narrative Course 57-year-old female presents emergency department with sudden onset of left flank pain radiating to the groin that started approximately 1 hour ago. At her initial evaluation, patient states that she believes secondary to her diverticulitis problem. States she did have a diverticulitis episode couple weeks ago where she received antibiotics. States she does have history of hypertension but denies any other medical issues. Labs and imaging studies ordered. Dilaudid, Compazine, Zofran, and Toradol administered. Patient has good relief this medication. Last Impressions Abdomen/Pelvis CT 01/10/18 1159 Signed Impressions: Service Date/Time: Wednesday, January 10, 2018 12:54 - CONCLUSION: 1. 2 mm calcified stone in the proximal left ureter causing [id number] hydronephrosis. There is one additional calcified stone lower pole left kidney. 2. Stable noncalcified gallstones measuring up to 1.3 cm. 3. Diverticulosis of the colon without radiographic evidence of diverticulitis. Luis Enrique Duncan MD Pt will be discharged with toradol, hydrocodone, flomax. UA concerning for developing urinary tract infection. Macrobid prescribed. Advised patient that she will have pain as a result of his kidney stone and the pain medication prescribed today will help alleviate some of her pain. Advised to follow up with her PCP and urologist for kidney stones. Return for worsening or persistent symptoms. Diagnosis Primary Impression: Nephrolithiasis Additional Impression: UTI (urinary tract infection) Qualified Codes: N30.01 - Acute cystitis with hematuria Referrals: Primary Care Physician Urologist Patient Instructions: General Instructions, Kidney Stones (ED), Narcotic given in the ED Additional Instructions: Take medications as prescribed. Avoid other antiinflammatories while taking toradol. Ensure you drink plenty of water. Follow up with your primary care physician and urologist. Be aware that you will have pain however, our goal is to reduce the pain to a manageable level. Scripts Ondansetron (Zofran) 4 Mg Tab 4 MG PO Q8HR Y for NAUSEA OR VOMITING for 5 Days, TAB 0 Refills Prov: Ean Harman MD 01/10/18 Nitrofurantoin Monohydrate Macrocrystals (Macrobid) 100 Mg Cap 100 MG PO BID for Infection for 5 Days, #10 CAP 0 Refills Prov: Ean Harman MD 01/10/18 Tamsulosin (Flomax) 0.4 Mg Cap 0.4 MG PO HS for Manage Prostate Problems for 10 Days, #10 CAP 0 Refills Prov: Ean Harman MD 01/10/18 Ketorolac (Ketorolac) 10 Mg Tab 10 MG PO TID for Pain Management for 3 Days, TAB 0 Refills Prov: Ean Harman MD 01/10/18 Hydrocodone-Acetaminophen (Hydrocodone-Acetaminophen) 5-325 mg Tab 1 TAB PO Q4H Y for PAIN for 5 Days, #20 TAB 0 Refills Prov: Ean Harman MD 01/10/18 Disposition: 01 DISCHARGE HOME Condition: Stable Marina Anand Jan 10, 2018 12:14
[2018-01-10] MEDS ORDERED: PROCHLORPERAZINE INJ 10 MG/2 ML VIAL IV PUSH ONE (12:15)
[2018-01-10] MEDS ORDERED: KETOROLAC TROMETHAMINE 30 MG/ML (IVP) VIAL IV PUSH ONE (12:15)
[2018-01-10] MEDS ORDERED: HYDR12.57 PO (12:16)
[2018-01-10] MEDS ORDERED: 5-HT50CA2 PO (12:16)
[2018-01-10] MEDS ORDERED: SYNT112T PO (12:16)
[2018-01-10] MEDS ORDERED: VITA10002 PO (12:16)
[2018-01-10 12:50] LABS: AUTOMATED NEUTROPHIL # 4.4 TH/MM3 (1.8-7.7); BASOPHIL # 0.1 TH/MM3 (0-0.2); BASOPHIL % 0.7 % (0.0-2.0); EOSINOPHIL # 0.2 TH/MM3 (0-0.4); EOSINOPHIL % 2.2 % (0.0-4.0); HEMOGLOBIN 14.8 GM/DL (11.6-15.3); LYMPH % 42.4 % (9.0-44.0); MEAN CELL VOLUME 88.7 FL (80.0-100.0); MEAN CORPUSCULAR HEMOGLOBIN 30.5 PG (27.0-34.0); MEAN CORPUSCULAR HGB CONC 34.4 % (32.0-36.0); MEAN PLATELET VOLUME 8.9 FL (7.0-11.0); MONO % 8.3 % (0.0-8.0); MONOCYTE # 0.8 TH/MM3 (0-0.9); NEUT % 46.4 % (16.0-70.0); PLATELET COUNT 304 TH/MM3 (150-450); RED BLOOD COUNT 4.85 MIL/MM3 (4.00-5.30); RED CELL DISTRIBUTION WIDTH 13.8 % (11.6-17.2); WHITE BLOOD COUNT 9.4 TH/MM3 (4.0-11.0)
[2018-01-10] MEDS ORDERED: IOHEXOL 350 MG/ML 10 ML VIAL (for RAD DIAG) IVCONTRAST ONE (13:03)
[2018-01-10 13:05] LABS: ALBUMIN 3.7 GM/DL (3.4-5.0); BICARBONATE 25.9 MEQ/L (21.0-32.0); BLOOD UREA NITROGEN 17 MG/DL (7-18); CALCIUM 9.2 MG/DL (8.5-10.1); CHLORIDE 104 MEQ/L (98-107); CREATININE 0.91 MG/DL (0.50-1.00); GLOMERULAR FILTRATION RATE 63 ML/MIN (>89); GLUCOSE,RANDOM 116 MG/DL (74-106); SODIUM (NA) 140 MEQ/L (136-145)
[2018-01-10 13:06] LABS: ALT (GPT) 26 U/L (10-53); AST (GOT) 20 U/L (15-37)
[2018-01-10 13:08] LABS: ALKALINE PHOSPHATASE 119 U/L (45-117); TOTAL BILIRUBIN ADULT 0.9 MG/DL (0.2-1.0); TOTAL PROTEIN 7.5 GM/DL (6.4-8.2)
[2018-01-10] MEDS ORDERED: HYDROmorphone HCL PF 2 MG/ML VIAL IV PUSH ONE (13:15)
[2018-01-10] MEDS ORDERED: SODIUM CHLOR 0.9% 1000 ML INJ 1,000 ML IV ONE (13:15)
--- NOTE | 2018-01-10 13:18 | RADRPT ---
EXAM DATE/TIME: 01/10/2018 12:54 [facility] COMPARISON: CT ABDOMEN & PELVIS W CONTRAST, January 09, 2017, 22:24. INDICATIONS : Left flank pain radiating to lower abdomen for 30 minutes. IV CONTRAST: 92 cc Omnipaque 350 (iohexol) IV ORAL CONTRAST: No oral contrast ingested. RADIATION DOSE: 16.20 CTDIvol (mGy) MEDICAL HISTORY : Hypertension. Diverticulitis. SURGICAL HISTORY : Hysterectomy. ENCOUNTER: Initial ACUITY: 1 day PAIN SCALE: 10/10 LOCATION: Left TECHNIQUE: Volumetric scanning of the abdomen and pelvis was performed. Using automated exposure control and ad justment of the mA and/or kV according to patient size, radiation dose was kept as low as reasonably achievable to obtain optimal diagnostic quality images. DICOM format image data is available electro nically for review and comparison. FINDINGS: LOWER LUNGS: The visualized lower lungs are clear. LIVER: Homogeneous density without lesion. There is no dilation of the biliary tree. There are 2 noncalcif ied gallstones with gas within the central portion, stable in size from prior exam. SPLEEN: Normal size without lesion. PANCREAS: Within normal limits. KIDNEYS: Abnormal left kidney with mild hydronephrosis and mild dilation of the left ureter to the proximal on e third where there is a 2 mm obstructing calcified stone. There is a 3 mm calcified stone in the lo wer pole collecting system. On the right side, no evidence of hydronephrosis, calcified stone, or ma ss. The right ureter is normal in diameter. ADRENAL GLANDS: Within normal limits. VASCULAR: There is no aortic aneurysm. BOWEL/MESENTERY: No dilated loops of small or large bowel. There are diffuse diverticula throughout the colon without radiographic evidence of diverticulitis. ABDOMINAL WALL: Within normal limits. RETROPERITONEUM: There is no lymphadenopathy. BLADDER: No wall thickening or mass. REPRODUCTIVE: Within normal limits. INGUINAL: There is no lymphadenopathy or hernia. MUSCULOSKELETAL: Within normal limits for patient age. CONCLUSION: 1. 2 mm calcified stone in the proximal left ureter causing plso-fl-omamecld hydronephrosis. There i s one additional calcified stone lower pole left kidney. 2. Stable noncalcified gallstones measuring up to 1.3 cm. 3. Diverticulosis of the colon without radiographic evidence of diverticulitis. Luis Enrique Duncan MD on January 10, 2018 at 13:09 Board Certified Radiologist. This report was verified electronically.
[2018-01-10 13:29] VITALS: BP_SYST 115; BP_SYST 141; BP_DIAS 72; BP_DIAS 83; PULSE 76; PULSE 89; RESP 16; O2SAT 99
[2018-01-10] MEDS ORDERED: TAMS5CAP PO (13:29)
[2018-01-10] MEDS ORDERED: KETO10 PO (13:29)
[2018-01-10] MEDS ORDERED: HYDR-3516 PO (13:29)
[2018-01-10 13:49] LABS: BACTERIA, URINE RARE /hpf; BILIRUBIN, URINE NEG (NEG); BLOOD, URINE LARGE (NEG); GLUCOSE,URINE NEG (NEG); HYALINE CAST, URINE 1 /lpf (RARE); KETONE, URINE 40 mg/dL (NEG); MUCUS URINE FEW /lpf (OCC); NITRITE,URINE NEG (NEG); SQUAMOUS EPITHELIAL CELL URINE <1 /hpf (0-5); URINE COLOR YELLOW (YELLW/STRAW); URINE LEUKOCYTE ESTERASE NEG (NEG)
[2018-01-10] MEDS ORDERED: ZOFR4TAB PO (14:02)
[2018-01-10] MEDS ORDERED: MACR100C2 PO (14:02)
[2018-01-10 14:20] VITALS: BP 141/71
--- NOTE | 2018-01-11 19:56 | EKG ---
Date Performed: 01/10/2018 Time Performed: 12:30:54 PTAGE: 57 years EKG: Sinus rhythm WITH FIRST DEGREE AV BLOCK NONSPECIFIC ST-T WAVE CHANGES ABNORMAL ECG PREVIOUS TRACING : 01/09/2017 21.04 Since the prior tracing, there has been no significant boyd DOCTOR: Matilda Andujar Interpretating Date/Time 01/11/2018 19:54:28
== END 2018-01-10 14:20 | disposition home or self-care (01) ==
LOC: NEPC 11:46
DX: N13.2 Hydronephrosis with renal and ureteral calculous obstruction (principal); N30.01 Acute cystitis with hematuria; K57.30 Diverticulosis of large intestine without perforation or abscess without bleeding; I44.0 Atrioventricular block, first degree; I10 Essential (primary) hypertension; E78.00 Pure hypercholesterolemia, unspecified; Z88.8 Allergy status to other drugs, medicaments and biological substances; Z79.899 Other long term (current) drug therapy
CPT/HCPCS: 74177; 80053; 81001; 83690; 85025; 85610; 85730; 93005; 96361; 96374; 96375; 96376; 99285; J1170; J1885; J2405; J7030; Q9967